=== PATIENT | male | born 2000 | race Caucasian/White ===

== ENCOUNTER 2021-07-29 03:44 | Emergency (ER) | payer OTHER, SELFPAY ==
[2021-07-29 03:50] VITALS: BP 129/84; PULSE 99; RESP 18; TEMP 39.6; O2SAT 98
[2021-07-29 04:42] VITALS: TEMP 38.4
[2021-07-29] MEDS: IBUPROFEN 600 MG TABLET PO (04:50)
--- NOTE | 2021-07-29 04:50 | PC.NURSE ---
Ibuprofen 600mg po given covid/flu swab done at this time.
[2021-07-29 05:29] VITALS: BP 127/80; PULSE 94; RESP 18; O2SAT 96
--- NOTE | 2021-07-29 05:45 | ED.URI ---
HPI - URI/Sore Throat General Chief Complaint: Upper Respiratory Infection Source: patient Mode of arrival: ambulatory Limitations: no limitations History of Present Illness HPI Narrative: 21-year-old male presents emergency room with upper respiratory type symptoms. States been having some chills and fevers. He got a cough and congestion. Denies any shortness of breath. He has vaccinated for COVID. No one else at home has been sick. He has been running a fever associated with this up about 102 degrees. Denies any abdominal pain. No nausea vomiting. Review of Systems Review of Systems: CONSTITUTIONAL: Patient is having fevers and chills. EYES: Denies visual changes, redness, or discharge. ENT: Denies rhinorrhea, congestion, sore throat, or otalgia. CARDIOVASCULAR: Denies chest pain, palpitations, or edema. RESPIRATORY: Mild nonproductive cough GASTROINTESTINAL: Denies abdominal pain, nausea, vomiting, or diarrhea. GENITOURINARY: Denies dysuria or hematuria. SKIN: Denies rash or itching. MUSCULOSKELETAL: Denies back pain, joint pain, or myalgia. NEUROLOGIC: Denies headache, numbness, or weakness. PSYCHIATRIC: Denies anxiety or depression. Exam Narrative: APPEARANCE: Well appearing, no pain or distress, well-nourished. Head normocephalic and atraumatic. EYES: PERRLA/EOMI, conjunctivae very clear. NOSE: Some clear nasal rhinorrhea EARS:TMS clear Leoncio Love, with good light reflex. THROAT: Pharynx clear, no exudate. NECK: Supple. No adenopathy, no masses. RESPIRATORY: Airway patent, respirations nonlabored. Clear to auscultation bilaterally, no rales, rhonchi, wheezing. CARDIOVASCULAR: Regular rate and rhythm without murmurs, rubs, or gallops. ABDOMINAL: Soft, nontender, nondistended, no hepatosplenomegaly Musculoskeletal: Moves all extremities. Strength/ROM intact, No edema, No calf tenderness. NEURO: Alert. Cranial nerves II through XII intact. Normal gait. Good coordination. Nonfocal examination. SKIN:: Warm, dry. Normal Color PSYCHIATRIC: Normal affect/mood, normal interaction Course Vital Signs Vital signs: Vital Signs Temperature 103.3 F H 07/29/21 03:50 Pulse Rate 99 07/29/21 03:50 Respiratory Rate 18 07/29/21 03:50 Blood Pressure 129/84 07/29/21 03:50 Pulse Oximetry 98 07/29/21 03:50 Temperature 101.1 F H 07/29/21 04:42 Pulse Rate 94 07/29/21 05:29 Respiratory Rate 18 07/29/21 05:29 Blood Pressure 127/80 07/29/21 05:29 Pulse Oximetry 96 07/29/21 05:50 MDM - URI/Sore Throat MDM Narrative Medical decision making narrative: Patient's COVID came back positive. Influenza is negative. Patient will be started on Paxlovid for his COVID. Told to quarantine himself. Lab Data Labs: Lab Results 07/29/21 Range/Units 04:53 Influenza A (RT-PCR) Negative (Negative) Influenza B (RT-PCR) Negative (Negative) SARS-CoV-2 RNA (RT-PCR) Positive A Discharge Plan Discharge Clinical Impression: COVID-19 Patient Disposition: Home, Self-Care Condition: Stable Instructions: COVID-19 (Coronavirus Disease 2019) (ED) Additional Instructions: Increase fluids. Tylenol Advil as needed. Quarantine yourself away from others. Prescriptions: New Paxlovid (EUA) 150 mg x 2- 100 mg tablet See Rx Instructions .ROUTE .COMPLEX Qty: 30 RF: 0 Follow-up/Referrals: PHYSICIAN,ROVING SIZER [Primary Care Provider] - Time of Disposition: 06:30
[2021-07-29 05:50] VITALS: O2SAT 96
[2021-07-29 06:05] LABS: Influenza A QL RT-PCR Negative (Negative); Influenza B QL RT-PCR Negative (Negative); SARS-CoV-2 RNA PCR Positive
[2021-07-29 06:52] VITALS: BP 114/60; PULSE 93; RESP 18; O2SAT 98
== END 2021-07-29 06:53 | disposition home or self-care (01) ==
PROVIDERS: Emergency Provider Emergency Medicine
DX: U07.1 COVID-19 (principal)
CPT/HCPCS: 87502; 99283; A9270; C9803; U0003; U0005

== ENCOUNTER 2023-03-24 16:16 | Emergency (ER) | payer OTHER, SELFPAY ==
--- NOTE | 2023-03-24 16:22 | ED.URI ---
HPI - URI/Sore Throat General Chief Complaint: Upper Respiratory Infection Stated Complaint: Congestion/Body Aches/Chills Time Seen by Provider: 03/24/23 16:24 Source: patient, RN notes reviewed and old records reviewed Mode of arrival: ambulatory Limitations: no limitations History of Present Illness HPI Narrative: 23-year-old male presents to [facility] with complaint of cough, congestion, scratchy throat, chills, myalgias, fatigue this started 2-3 days ago. Patient taking [id number] medications with no relief. Patient denies dizziness, chest pain, shortness of breath, weakness, vomiting MD elicited complaint: cough and nasal congestion Onset (ago): day(s) (2-3) Related Data Home Medications Medication Instructions Recorded Confirmed Cimczia 03/24/23 fluticasone propionate 50 intranasal 03/24/23 mcg/actuation nasal spray,suspension Allergies Allergy/AdvReac Type Severity Reaction Status Date / Time No Known Allergies Allergy Verified 03/24/23 16:27 Review of Systems Constitutional: Constitutional: Reports as per HPI, Reports body ache(s), Reports chills and Reports fatigue Eyes: Eyes: Reports no additional eye complaints ENT: Reports as per HPI, Reports nasal congestion, Reports nasal discharge and Reports sore throat Cardiovascular: Cardiovascular: Reports no additional cardiovascular complaints Respiratory: Respiratory: Reports as per HPI, Reports chest congestion and Reports cough Neurologic: Reports system reviewed and no additional complaints, except as documented PMFSH Comments At the time of my signature, I reviewed and agree with the nursing past medical, surgical, social, and family history. There is no relevant family history pertinent to the patient complaint. Exam Const: General: cooperative, healthy appearing, no acute distress and well nourished Nutritional Appearance: well nourished Orientation/consciousness: patient oriented x3 Limitations: no limitations HENMT: Head: normal to inspection and normocephalic Ears: external ears normal, TM's normal bilaterally, mastoids normal and Abnormal EAC present Face/Nose/Sinus: normal facial exam Face and sinus: normal facial exam Mouth: Yes Normal oral and palatal mucosa present, Yes oropharynx normal and Yes moist mucous membranes Throat: posterior oropharynx normal, tonsils normal, uvula midline and no uvular edema Eyes: General: appearance normal, both eyes and all related structures Sclera: sclerae normal Pupils: Equal, round and reactive pupils present Resp: Effort & Inspection: normal respiratory effort, able to speak in complete sentences, no audible wheezes, no cough, no respiratory distress and no retractions Auscultation: clear to auscultation bilaterally, no crackles, no rales, no rhonchi and no wheezes Cardio: Rate: regular rate Rhythm: regular rhythm Skin: General skin exam: normal color and no rashes or lesions noted Neuro: General: patient oriented x3 Cranial nerves: Yes Equal, round and reactive pupils present Psych: Appearance: grossly normal Course Course Emergency Course: Some parts of this dictation were generated by voice recognition software and may contain typographical and/or grammatical inaccuracies. Level of Care: Express Care Visit Vital Signs Vital signs: Reviewed MDM - URI/Sore Throat MDM Narrative Medical decision making narrative: patient with complaints of cough congestion, scratchy throat, myalgia, chills for 3 days. Patient's COVID/influenza tests negative in clinic today. We will treat as viral respiratory infection with instructions on [id number] treatments patient resting without signs or symptoms of acute distress, nontoxic appearing, vital signs stable. Patient appropriate for discharge home with instructions on close monitoring, follow-up, and when to seek emergency care. All questions answered. Written and verbal instructions given via RN. patient voiced u
[2023-03-24 16:24] VITALS: BP 121/60; PULSE 82; RESP 16; TEMP 37.4; O2SAT 97
[2023-03-24 16:27] VITALS: BP 121/60; PULSE 82; RESP 16; TEMP 37.4; O2SAT 97
== END 2023-03-24 17:04 | disposition home or self-care (01) ==
PROVIDERS: Emergency Provider Registered Nurse; PCP Family Medicine
DX: J06.9 Acute upper respiratory infection, unspecified (principal); Z20.822 Contact with and (suspected) exposure to COVID-19; L40.9 Psoriasis, unspecified
CPT/HCPCS: 87426; 87804; 99213; C9803; G0463

== ENCOUNTER 2023-09-03 15:12 | Emergency (ER) | payer OTHER, SELFPAY ==
--- NOTE | ~2023-09-03 | XR_ITS ---
EXAMINATION: XR chest 2V DATE: 09/03/2023 17:34 INDICATION: Shortness of breath with activity TECHNIQUE: PA and lateral views of the chest were obtained. COMPARISON: None FINDINGS: The lungs are clear with no focal airspace opacities, pulmonary edema, pleural effusion or pneumothor ax. The cardiomediastinal silhouette is normal. Mild thoracic spondylosis. IMPRESSION: 1. No acute cardiopulmonary disease. Reviewed, dictated and finalized at location A.
[2023-09-03 15:43] VITALS: BP 130/63; PULSE 95; RESP 18; TEMP 37.1; O2SAT 99
--- NOTE | 2023-09-03 17:07 | ED.URI ---
HPI - URI/Sore Throat General Chief Complaint: Upper Respiratory Infection Stated Complaint: Sore Throat/Shortness of Breath Time Seen by Provider: 09/03/23 17:07 Source: patient, RN notes reviewed and old records reviewed Mode of arrival: ambulatory Limitations: no limitations History of Present Illness HPI Narrative: 23-year-old male Express [facility] with complaint of shortness of breath with activity and sore throat for 2 days. Patient denies allergies, fever, nausea, vomiting, chest pain, pertinent medical history, cough. patient able to speak in full sentences in exam room. Respirations even and nonlabored. No signs of acute distress. Related Data Home Medications Medication Instructions Recorded Confirmed certolizumab pegol 400 mg/2 mL 400 mg subcut ONCE 09/03/23 09/03/23 (200 mg/mL x2) subcutaneous syringe kit (Cimzia) finasteride 1 mg tablet 1 mg PO DAILY 09/03/23 09/03/23 minoxidil 2.5 mg tablet 2.5 mg PO DAILY 09/03/23 09/03/23 montelukast 10 mg tablet 10 mg PO DAILY 09/03/23 09/03/23 Allergies Allergy/AdvReac Type Severity Reaction Status Date / Time No Known Allergies Allergy Verified 03/24/23 16:27 Review of Systems Review of Systems: All systems reviewed & are unremarkable except as noted in HPI and below Constitutional: Constitutional: Reports no additional constitutional complaints Eyes: Eyes: Reports no additional eye complaints ENT: Reports as per HPI and Reports sore throat Cardiovascular: Cardiovascular: Reports no additional cardiovascular complaints, Denies chest pain and Denies dyspnea Respiratory: Respiratory: Reports as per HPI, Denies chest congestion, Denies cough, Reports dyspnea on exertion and Denies wheezing Musculoskeletal: Musculoskeletal: Reports no additional musculoskeletal complaints Neurologic: Reports system reviewed and no additional complaints, except as documented Psychiatric: Psychiatric: Reports no additional psychiatric complaints PMFSH Comments At the time of my signature, I reviewed and agree with the nursing past medical, surgical, social, and family history. There is no relevant family history pertinent to the patient complaint. Exam Const: General: cooperative, healthy appearing, comfortable, no acute distress, alert and well nourished Nutritional Appearance: well nourished Orientation/consciousness: patient oriented x3 Limitations: no limitations HENMT: Head: normal to inspection Ears: external ears normal Face/Nose/Sinus: Normal external nose present, Normal nares present, normal facial exam, No erythema and No edema Face and sinus: normal facial exam, no erythema and no edema Mouth: Yes Normal oral and palatal mucosa present Eyes: General: appearance normal, both eyes and all related structures Neck: Neck: normal visual inspection, full ROM and no meningeal signs Lymphatic: no lymphadenopathy noted and no lymphedema noted Chest: Chest palpation & inspection: normal inspection of the chest Resp: Effort & Inspection: normal respiratory effort and able to speak in complete sentences Auscultation: clear to auscultation bilaterally Cardio: Jugular venous distension: no JVD Rate: regular rate Rhythm: regular rhythm Back/Spine/Pelvis: Cervical Spine: cervical ROM normal Skin: General skin exam: normal color, no rashes or lesions noted and turgor normal Neuro: General: patient oriented x3, gait normal, moves all extremities and no meningeal signs Speech: normal speech Gait exam (Neuro): Normal gait present Extrem: General: normal to inspection, full ROM and capillary refill normal Psych: Appearance: grossly normal and well kempt Course Course Emergency Course: Some parts of this dictation were generated by voice recognition software and may contain typographical and/or grammatical inaccuracies. Level of Care: Express Care Visit Vital Signs Vital signs: Vital Signs Temperature 37.1 C 09/03/23 15:43 Pulse Rate 95 05/
== END 2023-09-03 17:45 | disposition home or self-care (01) ==
PROVIDERS: Emergency Provider Nurse Practitioner Family; PCP Family Medicine
DX: J06.9 Acute upper respiratory infection, unspecified (principal); Z20.822 Contact with and (suspected) exposure to COVID-19
CPT/HCPCS: 71046; 87081; 87426; 87804; 87880; 99213; G0463